=== PATIENT | female | born 1960 | race Caucasian/White ===

== ENCOUNTER 2019-03-08 17:55 | Inpatient (IN) ==
[2019-03-08] MEDS ORDERED: PROTONIX 80 MG in NS 80 ML IV ONE (18:29)
[2019-03-08] MEDS ORDERED: PROTONIX 80 MG in NS 80 ML IV SCH ×2 (18:30→23:00)
[2019-03-08] MEDS ORDERED: LR 1,000 ML IV ONE (18:30)
[2019-03-08 18:39] LABS: OCCULT BLOOD 1 NEGATIVE (NEGATIVE)
[2019-03-08 19:08] LABS: BASO# 0.04 X1000 (0.0-0.2); BASO% 0.6 % (0.0-0.8); EOS# 0.07 X1000 (0.0-0.7); EOS% 1.1 % (0.0-10.0); HEMATOCRIT 31.5 % (37.0-47.0); HEMOGLOBIN 10.6 g/dL (12.0-16.0); IMM GRAN# 0.06 X1000 (0.0-0.04); LYMPH# 1.96 X1000 (1.2-3.4); LYMPH% 31.6 % (20.5-51.1); MCHC 33.7 g/dL (33-37); MCV 86.1 FL (81-99); MONO# 0.39 X1000 (0.11-0.59); MONO% 6.3 % (1.7-9.3); MPV 9.6 FL (7.4-10.4); NEUT# 3.68 X1000 (1.4-6.5); NEUT% 59.4 % (42.2-75.2); PLT 234 X1000 (130-400); RBC 3.66 XMIL (4.2-5.4); RDW 13.9 % (11.5-14.5)
[2019-03-08 19:15] LABS: ALBUMIN 4.5 g/dL (3.5-5.0); CALCIUM 10.4 mg/dL (8.8-10.2); CREATININE 1.1 mg/dL (0.5-0.9); POTASSIUM 3.6 mmol/L (3.5-5.1); TOTAL BILIRUBIN 0.3 mg/dL (0.20-1.00); TOTAL PROTEIN 7.2 g/dL (6.3-8.3)
[2019-03-08] MEDS ORDERED: HUMULIN R (PARKWAY) IV ONE (19:17)
[2019-03-08 19:24] LABS: INR 0.9; PROTIME 12.6 Seconds (11.0-16.0)
[2019-03-08] MEDS ORDERED: PROTONIX ONE (19:35)
[2019-03-08 19:37] LABS: CK PROFILE 35 U/L (24-173); MAGNESIUM 1.1 mg/dL (1.5-2.7); PHOSPHORUS 4.5 mg/dL (2.7-4.5)
[2019-03-08 19:39] LABS: URINE SOURCE CATH
[2019-03-08 19:51] LABS: BLOOD TYPE ARTERIAL; HCO3-(ACT) 25.5 mmoll (20.0-26.0); O2(CT) 12.2 mL/dL (15.0-23.0); PCO2(98.6) 42 mmHg (35-45); PO2(98.6) 63 mmHg (60-100); SAMPLE BLOOD; SAO2 93.9 % (95.0-100.0)
[2019-03-08 19:54] LABS: ALLEN TEST NO; MODALITY ROOM AIR
[2019-03-08 19:57] LABS: BILIRUBIN URINE NEGATIVE (NEGATIVE); BLOOD URINE NEGATIVE (NEGATIVE); CLARITY CLEAR (CLEAR); COLOR YELLOW; KETONE URINE NEGATIVE (NEGATIVE); LEUKOCYTES URINE NEGATIVE (NEGATIVE); NITRITE URINE NEGATIVE (NEGATIVE); PROTEIN URINE NEGATIVE (NEGATIVE); UROBILINOGEN URINE NORMAL
[2019-03-08 19:58] LABS: UR AMPHETAMINES QUAL NONE DETECTED (NONE DETECT); UR BARBITUATES QUAL PRESUMPTIVE POSITIVE (NONE DETECT); UR BENZODIAZEPIN QUAL PRESUMPTIVE POSITIVE (NONE DETECT); UR CANNABINOIDS QUAL NONE DETECTED (NONE DETECT); UR COCAINE QUAL NONE DETECTED (NONE DETECT); UR METHADONE QUAL NONE DETECTED (NONE DETECT); UR METHAMPHETAMINE QUAL NONE DETECTED (NONE DETECT); UR OPIATES QUAL NONE DETECTED (NONE DETECT); UR OXYCODONE QUAL NONE DETECTED (NONE DETECT); UR PCP QUAL NONE DETECTED (NONE DETECT); UR PROPOXYPHENE QUAL NONE DETECTED (NONE DETECT); UR TCA QUAL PRESUMPTIVE POSITIVE (NONE DETECT)
[2019-03-08 19:59] LABS: ACETONE SERUM NEGATIVE (NEGATIVE)
[2019-03-08] MEDS ORDERED: LACTATED RINGERS IV ONE (20:03)
[2019-03-08] MEDS ORDERED: LEVAQUIN 750 MG in NS 150 ML IV ONE (20:04)
[2019-03-08] MEDS ORDERED: ZOSYN 3.375 GM in NS 50 ML IV ONE (20:04)
[2019-03-08] MEDS ORDERED: MORPHINE IV PRN ×2 (20:05→22:38)
[2019-03-08] MEDS ORDERED: ZOFRAN IV PRN ×2 (20:05→22:38)
[2019-03-08] MEDS ORDERED: ATIVAN IV PRN (20:16)
[2019-03-08] MEDS ORDERED: HUMULIN R (PARKWAY) SUBQ SCH (21:00)
[2019-03-08] MEDS ORDERED: MAGNESIUM SULFATE 2 GM/S.W.I. 2 GM/50 ML IVPB IV ONE (22:44)
[2019-03-08] MEDS: PROTONIX 80 MG in NS 80 ML IV SCH (22:51)
[2019-03-08] MEDS: MORPHINE IV PRN (23:03)
[2019-03-08] MEDS: NS 1,000 ML IV SCH (23:05)
[2019-03-08] MEDS ORDERED: SODIUM CHLORIDE 0.9% INJ PRN (23:21)
[2019-03-08 23:27] LABS: HEMOGLOBIN 10.9 g/dL (12.0-16.0)
[2019-03-09] MEDS: DUONEB (A & A) INH SCH ×4 (03:46→21:11)
[2019-03-09] MEDS: MORPHINE IV PRN ×4 (05:44→18:39)
[2019-03-09] MEDS: HUMULIN R SUBQ SCH ×10 (05:45→22:56)
[2019-03-09] MEDS: NICODERM PATCH TD SCH ×2 (05:52→08:55)
[2019-03-09 06:29] LABS: URINE SOURCE CATH
[2019-03-09 06:30] LABS: BILIRUBIN URINE NEGATIVE (NEGATIVE); BLOOD URINE SMALL (NEGATIVE); COLOR YELLOW; GLUCOSE URINE 100 mg/dL (NEGATIVE); KETONE URINE NEGATIVE (NEGATIVE); LEUKOCYTES URINE NEGATIVE (NEGATIVE); NITRITE URINE NEGATIVE (NEGATIVE); PROTEIN URINE TRACE mg/dL (NEGATIVE); SP GRAVITY URINE 1.016; TURBIDITY URINE CLEAR (CLEAR); UROBILINOGEN URINE NORMAL (NORMAL)
[2019-03-09 06:34] LABS: UR EPITHELIAL CELLS <10 /HPF (<10); URINE BACTERIA NEGATIVE /HPF; URINE RBC <10 /HPF (<10); URINE WBC <10 /HPF (<10)
[2019-03-09] MEDS: ATIVAN IV PRN ×3 (07:34→19:49)
[2019-03-09] MEDS: PROTONIX 80 MG in NS 80 ML IV SCH (08:57)
[2019-03-09] MEDS: NS 1,000 ML IV SCH ×2 (08:57→18:18)
[2019-03-09 09:16] LABS: BASO# 0.02 X1000 (0.0-0.2); BASO% 0.4 % (0.0-0.8); EOS# 0.13 X1000 (0.0-0.7); EOS% 2.6 % (0.0-10.0); HEMATOCRIT 30.4 % (37.0-47.0); HEMOGLOBIN 9.7 g/dL (12.0-16.0); IMM GRAN# 0.04 X1000 (0.0-0.04); IMM GRAN% 0.8 % (0.0-0.5); LYMPH# 1.63 X1000 (1.2-3.4); LYMPH% 32.9 % (20.5-51.1); MCH 28.2 PG (27-31); MCHC 31.9 g/dL (33-37); MCV 88.4 FL (81-99); MONO# 0.34 X1000 (0.11-0.59); MONO% 6.9 % (1.7-9.3); MPV 9.3 FL (7.4-10.4); NEUT# 2.79 X1000 (1.4-6.5); NEUT% 56.4 % (42.2-75.2); PLT 206 X1000 (130-400); RBC 3.44 XMIL (4.2-5.4); RDW 14.1 % (11.5-14.5); WBC 4.95 X1000 (4.8-10.8)
[2019-03-09 09:22] LABS: HEMOGLOBIN A1C 10.8 % (4.8-6.0)
[2019-03-09 09:34] LABS: AGAP 11; BUN 10 mg/dL (8-22); CALCIUM 8.8 mg/dL (8.8-10.2); CHLORIDE 103 mmol/L (98-107); CHOLESTEROL 111 mg/dL (0-200); COSMO 286; CREATININE 0.8 mg/dL (0.5-0.9); ESTIMATED GFR > 60; GLUCOSE 201 mg/dL (70-104); HDL 24 mg/dL (45-65); LDL 30 mg/dL; MAGNESIUM 1.5 mg/dL (1.5-2.7); POTASSIUM 2.9 mmol/L (3.5-5.1); SODIUM 141 mmol/L (136-145); TCO2 27 mmol/L (25-35); TRIGLYCERIDES 286 mg/dL (35-135); VLDL 57 mg/dL
[2019-03-09 11:27] LABS: HEMATOCRIT 35.1 % (37.0-47.0); HEMOGLOBIN 11.7 g/dL (12.0-16.0)
[2019-03-09] MEDS: PHENERGAN IV PRN (11:42)
[2019-03-09] MEDS ORDERED: KLOR-CON PO ONE (13:07)
[2019-03-10] MEDS: MORPHINE IV PRN ×5 (01:58→18:49)
[2019-03-10] MEDS: DUONEB (A & A) INH SCH ×3 (03:30→15:53)
[2019-03-10] MEDS: ATIVAN IV PRN ×3 (05:05→10:04)
[2019-03-10] MEDS: NS 1,000 ML IV SCH (06:16)
[2019-03-10] MEDS: HUMULIN R SUBQ SCH ×6 (06:19→15:39)
[2019-03-10] MEDS: NICODERM PATCH TD SCH (08:01)
[2019-03-10 08:25] LABS: HEMATOCRIT 31.7 % (37.0-47.0); HEMOGLOBIN 10.3 g/dL (12.0-16.0); MCH 28.9 PG (27-31); MCHC 32.5 g/dL (33-37); MPV 9.3 FL (7.4-10.4); RBC 3.56 XMIL (4.2-5.4); WBC 4.6 X1000 (4.8-10.8)
[2019-03-10 08:29] LABS: INR 0.99; PROTIME 13.1 Seconds (11.0-16.0)
[2019-03-10 09:04] LABS: AGAP 10; ALB/GLOB RATIO 1.7; ALBUMIN 3.7 g/dL (3.5-5.0); ALKALINE PHOSPHATASE 54 U/L (32-104); BUN 9 mg/dL (8-22); CALCIUM 8.4 mg/dL (8.8-10.2); CHLORIDE 105 mmol/L (98-107); COSMO 286; CREATININE 0.7 mg/dL (0.5-0.9); ESTIMATED GFR > 60; GLUCOSE 179 mg/dL (70-104); GOT 20 U/L (10-30); GPT 12 U/L (10-36); POTASSIUM 3.6 mmol/L (3.5-5.1); SODIUM 142 mmol/L (136-145); TCO2 27 mmol/L (25-35); TOTAL BILIRUBIN 0.26 mg/dL (0.20-1.00); TOTAL PROTEIN 5.9 g/dL (6.3-8.3)
[2019-03-10] MEDS ORDERED: ATIVAN IV PRN (11:20)
[2019-03-10] MEDS ORDERED: NS 250 ML ONE (11:30)
[2019-03-10] MEDS ORDERED: VERSED ONE (12:50)
[2019-03-10] MEDS ORDERED: XYLOCAINE-MPF 2% ONE (12:52)
[2019-03-10] MEDS ORDERED: ROBINUL ONE (12:52)
[2019-03-10] MEDS ORDERED: DIPRIVAN 1% ONE (12:52)
[2019-03-10 13:06] LABS: HEPATITIS PROFILE ACUTE SEE COMMENTS
[2019-03-10] MEDS: PHENERGAN IV PRN ×2 (13:50→18:50)
[2019-03-10] MEDS: NEURONTIN PO SCH (17:27)
[2019-03-10 20:13] VITALS: BP 122/69
[2019-03-10] MEDS ORDERED: DESYREL PO SCH (21:00)
[2019-03-10] MEDS ORDERED: GEODON PO SCH (21:00)
[2019-03-10] MEDS ORDERED: SEROQUEL PO SCH (21:00)
[2019-03-10] MEDS ORDERED: REMERON PO SCH (21:00)
[2019-03-11 13:32] LABS: HCV BY PCR SEE COMMENTS
== END 2019-03-10 21:00 | disposition left against medical advice (07) ==
LOC: P.ED 17:55 → SUATTDRO 20:52 → ICU 20:52 → 3N 03-10 16:11
PROVIDERS: ATTEND Internal Medicine

== ENCOUNTER 2019-03-12 13:35 | Inpatient (IN) ==
[2019-03-12] MEDS ORDERED: HUMULIN R IV ONE (14:06)
[2019-03-12] MEDS ORDERED: GEODON IM ONE (14:20)
[2019-03-12] MEDS ORDERED: STERILE WATER INJ. INJ ONE (14:20)
[2019-03-12 14:27] LABS: BASO# 0.04 X1000 (0.0-0.2); BASO% 0.7 % (0.0-0.8); EOS# 0.15 X1000 (0.0-0.7); EOS% 2.5 % (0.0-10.0); HEMATOCRIT 34.6 % (37.0-47.0); HEMOGLOBIN 11.3 g/dL (12.0-16.0); IMM GRAN# 0.02 X1000 (0.0-0.04); IMM GRAN% 0.3 % (0.0-0.5); LYMPH# 1.36 X1000 (1.2-3.4); LYMPH% 22.3 % (20.5-51.1); MCH 28.2 PG (27-31); MCHC 32.7 g/dL (33-37); MCV 86.3 FL (81-99); MONO# 0.26 X1000 (0.11-0.59); MONO% 4.3 % (1.7-9.3); MPV 9.4 FL (7.4-10.4); NEUT# 4.28 X1000 (1.4-6.5); NEUT% 69.9 % (42.2-75.2); PLT 211 X1000 (130-400); RBC 4.01 XMIL (4.2-5.4); RDW 13.7 % (11.5-14.5); WBC 6.11 X1000 (4.8-10.8)
--- NOTE | 2019-03-12 14:41 | EKG Report ---
Test Performed on : 03/12/2019 2:20:50 PM Test Reason : sob Blood Pressure : / mmHG Vent. Rate : 083 BPM Atrial Rate : 083 BPM P-R Int : 150 ms QRS Dur : 096 ms QT Int : 394 ms P-R-T Axes : 057 -13 020 degrees QTc Int : 462 ms Normal sinus rhythm. Possible Left atrial enlargement RSR' or QR pattern in V1 suggests right ventricular conduction delay Nonspecific T wave abnormality Prolonged QT Abnormal ECG When compared with ECG of 08-MAR-2019 21:16, RSR' pattern in V1 has replaced Right bundle branch block T wave inversion more evident in Anterior leads Unconfirmed Result
[2019-03-12] MEDS ORDERED: HUMULIN R (PARKWAY) ONE (14:43)
--- NOTE | 2019-03-12 14:45 | Diag Imaging Result Doc PS360 ---
EXAM: CHEST-2 VIEWS HISTORY: short of breath TECHNIQUE: Two views COMPARISON: 03/09/2019 FINDINGS: The lungs are well expanded. The heart is not enlarged. There are sternal wires. The vessels are less distended. There are no infiltrates. No pleural effusions. IMPRESSION: Interval improvement Electronically signed by Dmitri Palma 03/12/2019 2:43 PM
[2019-03-12 14:55] LABS: ESTIMATED GFR > 60
[2019-03-12 15:05] LABS: AGAP 13; ALBUMIN 4.8 g/dL (3.5-5.0); ALKALINE PHOSPHATASE 74 U/L (32-104); BUN 9 mg/dL (8-22); CHLORIDE 97 mmol/L (98-107); COSMO 291; CREATININE 0.9 mg/dL (0.5-0.9); GOT 12 U/L (10-30); GPT 11 U/L (10-36); POTASSIUM 3.8 mmol/L (3.5-5.1); SODIUM 135 mmol/L (136-145); TCO2 25 mmol/L (25-35); TOTAL PROTEIN 7.6 g/dL (6.3-8.3)
[2019-03-12 15:07] LABS: GLUCOSE 494 mg/dL (70-104)
[2019-03-12 15:11] LABS: BILIRUBIN URINE NEGATIVE (NEGATIVE); BLOOD URINE NEGATIVE (NEGATIVE); CLARITY CLEAR (CLEAR); COLOR YELLOW; KETONE URINE NEGATIVE (NEGATIVE); LEUKOCYTES URINE NEGATIVE (NEGATIVE); NITRITE URINE NEGATIVE (NEGATIVE); PH URINE 6.5; PROTEIN URINE NEGATIVE (NEGATIVE); UROBILINOGEN URINE NORMAL
[2019-03-12 15:12] LABS: INFLUENZA A NEGATIVE (NEGATIVE); INFLUENZA B NEGATIVE (NEGATIVE)
[2019-03-12 15:13] LABS: URINE BACTERIA 1+ /HFP; URINE EPITHELIAL CELLS >10 /HPF (<10)
[2019-03-12 15:14] LABS: URINE CAST NONE SEEN /LPF; URINE CRYSTAL NONE SEEN /HPF; URINE SOURCE CLEAN CATCH; URINE YEAST NONE SEEN /HPF
[2019-03-12 15:58] LABS: BE 2.8 mmoll (-3.0-3.0); BLOOD TYPE ARTERIAL; METHB 0.8 % (0.0-1.5); O2(CT) 14.8 mL/dL (15.0-23.0); O2HB 90.2 % (95.0-99.0); PCO2(98.6) 32 mmHg (35-45); PO2(98.6) 81 mmHg (60-100); SAMPLE BLOOD; SAO2 97.5 % (95.0-100.0); THB 11.6 g/dL (11.5-17.4); pH(98.6) 7.51 (7.35-7.45)
[2019-03-12 16:02] LABS: ALLEN TEST NO; MODALITY ROOM AIR
[2019-03-12] MEDS ORDERED: MAGNESIUM SULFATE 2 GM/S.W.I. 2 GM/50 ML IVPB IV ONE (16:12)
[2019-03-12] MEDS ORDERED: LASIX PO PRN (16:24)
[2019-03-12] MEDS ORDERED: NICODERM PATCH TD ONE ×2 (16:31→16:33)
--- NOTE | 2019-03-12 16:34 | PROVIDER DOCUMENTATION ---
This chart was entered by Doron Rankin Scribe, acting as scribe for Bhupinder Fitch MD. HPI-General Adult - General Chief Complaint: High Blood Sugar Stated Complaint: HYPERGLYCEMIA 517 Time Seen by Provider: 03/12/19 13:51 Source: patient, EMS Allergies/Adverse Reactions: Patient Allergies Allergy/AdvReac Type Severity Reaction Status Date / Time aspirin Allergy Unknown Verified 03/12/19 15:12 ketorolac [From Toradol] Allergy Unknown Verified 03/12/19 15:12 nitroglycerin Allergy Unknown Verified 03/12/19 15:12 ondansetron [From Zofran] Allergy Unknown Verified 03/12/19 15:12 tramadol [From Ultram] Allergy Unknown Verified 03/12/19 15:12 Home Medications: Home Medication List Medication Instructions Recorded Confirmed Last Taken Type Albuterol Sulfate [Proair Hfa] 2 - 4 puff INHALATION Q4-6H PRN PRN 03/08/19 03/12/19 Unknown History Brompheniramine/Pseudoephed/Dm 5 - 10 ml PO Q4H PRN 03/08/19 03/12/19 Unknown History [Bromfed Dm Cough Syrup] Furosemide [Lasix] 20 mg PO DAILY PRN 03/08/19 03/12/19 Unknown History Ibuprofen 800 mg PO Q8H PRN PRN 03/08/19 03/12/19 Unknown History Mirtazapine 15 mg PO QHS 03/08/19 03/12/19 Unknown History Potassium Chloride 8 meq PO DAILY 03/08/19 03/12/19 Unknown History Quetiapine [Seroquel] 100 mg PO DAILY 03/08/19 03/12/19 Unknown History Trazodone [Desyrel] 100 mg PO QHS 03/08/19 03/12/19 Unknown History Ziprasidone [Geodon] 80 mg PO DAILY 03/08/19 03/12/19 Unknown History ATORVAstatin [Lipitor] 40 mg PO HS 03/12/19 03/12/19 Unknown History Fenofibrate [Tricor] 1 tab PO DAILY 03/12/19 03/12/19 Unknown History Folic Acid 1 tab PO DAILY 03/12/19 03/12/19 Unknown History Levetiracetam [Keppra] 1,000 mg PO BID 03/12/19 03/12/19 Unknown History Levothyroxine [Synthroid] 1 tab PO DAILY 03/12/19 03/12/19 Unknown History Quetiapine [Seroquel] 2 tab PO HS 03/12/19 03/12/19 Unknown History Sennosides/Docusate Sodium 1 tab PO HS 03/12/19 03/12/19 Unknown History [Senna-S Tablet] Sertraline HCl [Zoloft] 1 tab PO DAILY 03/12/19 03/12/19 Unknown History - History of Present Illness -Gen Adult Nature of Presenting Problems: 58 yof presents to the ed v/a ems with c/o High Blood Sugar. pt stated leaving [facility] yesterday AMA because "They wasnt given me my medications , i felt bad i could feel i needed them." pt stated " i was here in [facility] 2 days ago and was admitted to from here with fluid on my lungs, GI bleed and Pneumonia." pt stated " I went back to [facility] where i was for 2 weeks and paid money up front , then kept my and they wont take me anymore because I have to many health problems." pt stated " today i went to my pcp and they were suppose to call over here." pt stated " i couldn't sleep last night." pt had hx of schizo , bipolar,and Hep C Location of Pain/Injury: reports: none Pain Radiation: reports: no radiation Quality of Pain: reports: none Severity: reports: mild Onset/Duration: reports: other (left icu at yesterday) Timing: reports: still present Context/Activities at Onset: reports: none Modifying Factors: improves with: nothing Associated Symptoms: denies: arm pain, back/neck pain, chest pain, diarrhea, fever/chills, nausea, rash, vomiting Similar Symptoms Previously?: No Recently seen or treated by another doctor?: Yes (by pcp today , ICU yesterday ) - Diabetes Related Context Context: reports: high blood sugar (ems repoeted on arrival sugar was 481) Review of Systems - Adult - REVIEW OF SYSTEMS - ADULT Constitutional: denies: chills, fever Eyes: reports: no symptoms reported Ears, Nose, Mouth & Throat: reports: no symptoms reported Cardiovascular: denies: chest pain, syncope Respiratory: denies: shortness of breath, wheezing Gastrointestinal: denies: abdominal pain, diarrhea, nausea, vomiting Genitourinary: reports: no symptoms reported Musculoskeletal: denies: back pain, neck pain Integumentary: reports: no symptoms reported Neurological: reports: no symptoms reported Psychiatric: reports: no symptoms reported Endocrine: reports: no symptoms reported Hematologic/Lymphatic: reports: no symptoms reported Allergic/Immunologic: reports: no symptoms reported All Other Systems: Reviewed and Negative Past History - Adult - PAST MEDICAL HISTORY-ADULT Review of Records: reports: Nursing Assessment Review, Medications Reviewed, Social history reviewed & non-contributory. Major Childhood Illnesses: reports: denies history Cardiovascular: reports: cardiac disease, CAD, CHF, hyperlipidemia, [place] Respiratory: reports: denies history Gastrointestinal: reports: denies history Obstetrical/Gynecological: reports: denies history Genitourinary: reports: denies history Musculoskeletal: reports: arthritis Neurological: reports: denies history Psychiatric: reports: anxiety, bipolar, schizophrenia Endocrine/Immune: reports: thyroid disorder Other Conditions: reports: denies history - PRIOR SURGERIES/PROCEDURES Surgical/Procedure History: reports: CABG, cholecystectomy - IMMUNIZATION STATUS Childhood Immunizations: UTD Flu Vaccine: NUTD - FAMILY HISTORY Family History: reviewed, not pertinent Physical Exam-General - PHYSICAL EXAM-ADULT Initial Vital Signs Reviewed: Yes - CONSTITUTIONAL General Appearance: appears well, alert, no apparent distress, other (tearful on exam). negative: lethargic, slow to respond - EYES Eyes: PERRL/EOMI - HEAD, EARS, NOSE, MOUTH & THROAT HENMT: moist mucous membranes - NECK Neck: full range of motion - RESPIRATORY Respiratory: chest non-tender, lungs clear, normal breath sounds, no pleuratic chest pain, no respiratory distress, no accessory muscle use - CARDIOVASCULAR Cardiovascular: normal peripheral pulses (97), regular rate, rhythm, no edema, no gallop, no JVD, no murmur - CHEST (BREASTS) Chest/Breast: deferred - GASTROINTESTINAL (ABDOMEN) Abdominal Exam: normal bowel sounds, non tender, soft, no organomegaly, no pulsatile mass - GENITOURINARY Female Genitalia/Pelvic Exam: deferred Rectal Exam: deferred Hemoccult Exam: deferred - LYMPHATIC Lymphatic: no adenopathy - MUSCULOSKELETAL Back Exam: normal inspection, no CVA tenderness, no vertebral tenderness Extremity: normal range of motion, non-tender, normal gait, normal inspection - SKIN Integumentary: normal color, normal turgor, warm/dry - NEUROLOGIC Neurologic: grossly normal, no motor/sensory deficits - PSYCHIATRIC Psych/Mental Status: normal mood/affect, normal thought content, normal thought process, oriented x 3 Progress - PLAN OF CARE/RESULTS Progress/Plan/Lab Results: Vital Signs - 8 hr 03/12/19 13:27 Temperature 97 F L Pulse Rate 94 H Respiratory Rate 18 Blood Pressure 131/97 O2 Sat by Pulse Oximetry 96 Result Diagrams: 03/12/19 14:00 03/12/19 14:00 - EKG 1 Time of EKG reading by physician:: 14:20 EKG Read and Signed by:: Bhupinder Fitch EKG Interpretation (*Must complete 3 of following elements*): Abnormal Rate: 83 Rhythm: NSR Walland: normal ID Interval: normal (proglonged QT) ST Wave: normal (RSR or QR pattern in V1 suggests right ventricular conduction delay) Comments: possible left atrial enlargement /nonspecific T wave abnormality - XRAY 1 XRAY Study: Chest Impression: See EMR Report (EXAM: CHEST-2 VIEWS HISTORY: short of breath TECHNIQUE: Two views COMPARISON: 03/09/2019 FINDINGS: The lungs are well expanded. The heart is not enlarged. There are sternal wires. The vessels are less distended. There are no infiltrates. No pleural effusions. IMPRESSION: Interval improvement Electronically signed by Dmitri Palma 03/12/2019 2:43 PM 03/12/19 1443 Interpreting Physician: Dmitri Palma MD Dictated Date/Time: 03/12/19 1442 cc: Bhupinder Fitch MD;) - CONSULTS/PCP/HOSPITALIST Notification #1 *Consult/PCP/Hospitalist*: on phone with Time Discussed: 16:02 Consult Disposition: Admit Departure - Departure Date of Disposition Decision: 03/12/19 Time of Disposition Decision: 16:09 DIAGNOSIS: Hypomagnesemia, Lactic acidosis, Uncontrolled diabetes mellitus, Bipolar 1 disorder, depressed, moderate Disposition: ADMITTED INPATIENT 09 Certified Medical Emergency: Emergent Condition: Fair Referrals and Follow-Ups: None,PCP [Primary Care Provider] - - Critical Care Note This patient required my direct & personal management of CC.: No Attestation - Physician/ SHIVANI Attestation Patient care was provided by Advanced Practice Provider:: No The physician spent face to face time with patient:: Yes Advanced Practice Provider documentation review:: Supervising physician onsite and consulted in the evaluation and care of this patient. The physician did have a face to face encounter with the patient. This chart was documented by the indicated scribe, (Doron Rankin, Daniella) and accurately reflects the services I performed and decisions made by me, Bhupinder Fitch MD, as attested by the provider's signature.
[2019-03-12 16:56] LABS: HEMOGLOBIN A1C 10.4 % (4.8-6.0)
[2019-03-12] MEDS ORDERED: ZOFRAN IV PRN (17:21)
[2019-03-12] MEDS: LOVENOX SUBQ SCH (17:51)
[2019-03-12] MEDS: ZOSYN 3.375 GM in NS 50 ML IV SCH ×2 (17:51→23:25)
[2019-03-12] MEDS: NS 1,000 ML IV SCH (17:51)
[2019-03-12] MEDS: PRILOSEC PO SCH (17:51)
[2019-03-12] MEDS: TYLENOL PO PRN (17:55)
[2019-03-12] MEDS: DUONEB (A & A) INH SCH ×2 (19:31→23:25)
[2019-03-12] MEDS: MUCOMYST 20% INH SCH (19:32)
--- NOTE | 2019-03-12 20:13 | HISTORY AND PHYSICAL ---
CHIEF COMPLAINT: Shortness of breath. HISTORY OF PRESENT ILLNESS: This is a 58-year-old female who was recently admitted to [facility] for GI bleeding and flu-like symptoms that appears to be pneumonia. Unfortunately, the patient left the hospital AMA. According to her she said that she was not allowed to take her home medication for bipolar disorder and schizoaffective disorder. According to the notes from that visit, she was not allowed to walk in the hallways, and she got upset and left the hospital AMA. In any case, since she left the hospital, she continued to have difficulty in breathing, more cough with greenish sputum, and that has been going on for almost a week. She was given azithromycin prior to her last visit to the hospital. She is not having any blood in the stools or maroon-colored stools. She was scoped for possible GI bleeding last hospitalization a few days ago. In the ER, workup revealed normal white cell count with a little bit decreased CO2 in the ABG, elevated blood sugars of 494 and slightly elevated lactate so we were called for admission. PAST MEDICAL HISTORY: 1. Bipolar with schizoaffective disorder. 2. Chronic obstructive pulmonary disease not on any oxygen. 3. Diabetes mellitus type 2. 4. Anxiety disorder. 5. Depressive disorder with suicidal attempt 6 years ago. 6. Congestive heart failure. 7. Coronary artery disease. 8. History of pancreatitis. 9. Hepatitis C from blood transfusion 20 years ago. PAST SURGICAL HISTORY: 1. CABG x3 at [facility] in [place]. 2. Cholecystectomy. 3. Hysterectomy. 4. Left arm surgery. 5. Right arm surgery. 6. Tumor removal from the right buttocks. FAMILY HISTORY: Mother from COPD. Father from alcohol abuse. Patient has a brother who has COPD as well and also had a heart attack. SOCIAL HISTORY: Patient recently moved from [place], [place]. She reports that she does drink alcohol being wine every order day, but she completely complete 1 week ago. She smokes 1 pack per day for the last 48 years. She started smoking at 10, and she lives by herself. She denies using any illicit drugs. ALLERGIES: Patient is allergic to aspirin, Toradol, nitroglycerine, Compazine and Zofran. REVIEW OF SYSTEMS: Eleven systems were reviewed, and all symptoms are related in H and P. PHYSICAL EXAMINATION: VITAL SIGNS: Temperature 97.0 degrees, heart rate 92, respiratory rate 20, blood pressure 132/72, O2 saturation 96% on room air. GENERAL EXAMINATION: This is a chronically ill-appearing and looking older than her stated age, 58-year-old female lying in bed in no acute distress. HEENT: Head is normocephalic and atraumatic. Pupils equal, round, reactive to light and accommodation. Anicteric sclerae and pale conjunctivae. NECK: No JVD noted. No carotid bruits. No lymphadenopathy. No thyromegaly. CARDIOVASCULAR EXAM: S1, S2 heard. No murmurs, gallops, or rubs. Regular rate and rhythm. RESPIRATORY: Decreased breath sounds globally with minimal coarse breath sounds in both pulmonary bases. Patient not using any accessory muscles or having work of breathing. ABDOMEN: Soft, nontender to palpation. Bowel sounds present. No organomegaly. EXTREMITIES: No clubbing, cyanosis, or edema. Peripheral pulses present in both legs. NEUROLOGICAL EXAM: The patient is alert and oriented x3. Moves all 4 extremities. LABORATORY DATA: CBC indicates white cell count of 6.11 with hemoglobin of 11.3, hematocrit 34.6, platelets 211,000. ABG shows pH of 7.51 with pCO2 32, pO2 81. BMP shows glucose of 494. Troponins are normal. Plasma lactate 2.3. IMAGING: Chest x-ray from today showed interval improvement. There is no infiltrate, no perforation. ASSESSMENT AND PLAN: 1. Acute bronchitis. For that condition, we are going to start this patient on Zosyn 3.375 g IV q.6 hours. We will provide also breathing treatments, and I do not think we need to use steroids because patient is not in any chronic obstructive pulmonary disease exacerbation. We will also provide Mucomyst as well. We will keep checking CBC daily. We will check also lactate tomorrow that is slightly elevated today. 2. Uncontrolled diabetes mellitus type 2. Glucose is over 400 so we will restart Levemir and start sliding scale insulin with Humalog. We will check hemoglobin A1c. 3. Deep vein thrombosis prophylaxis with Lovenox. 4. Gastrointestinal prophylaxis with omeprazole. cc: MD NARA Tanner
[2019-03-12] MEDS: PERICOLACE PO SCH (21:51)
[2019-03-12] MEDS: LIPITOR PO SCH (21:51)
[2019-03-12] MEDS: DESYREL PO SCH (21:51)
[2019-03-12] MEDS: REMERON PO SCH (21:51)
[2019-03-12] MEDS: LEVEMIR INSULIN *HA SUBQ SCH (21:52)
[2019-03-12] MEDS: KEPPRA PO SCH (21:52)
[2019-03-12] MEDS: HUMALOG (PARKWAY) SUBQ SCH (21:58)
[2019-03-12] MEDS: GEODON PO SCH (23:24)
[2019-03-13] MEDS: DUONEB (A & A) INH SCH ×6 (03:51→23:19)
[2019-03-13 04:15] LABS: BE 3.6 mmoll (-3.0-3.0); BLOOD TYPE ARTERIAL; HCO3-(ACT) 27.6 mmoll (20.0-26.0); METHB 0.8 % (0.0-1.5); O2(CT) 14.1 mL/dL (15.0-23.0); O2HB 90.7 % (95.0-99.0); PCO2(98.6) 39 mmHg (35-45); PO2(98.6) 63 mmHg (60-100); SAMPLE BLOOD; SAO2 94.6 % (95.0-100.0); pH(98.6) 7.46 (7.35-7.45)
[2019-03-13 04:19] LABS: ALLEN TEST YES; MODALITY ROOM AIR
[2019-03-13] MEDS: TYLENOL PO PRN ×3 (04:35→23:14)
[2019-03-13] MEDS: ZOSYN 3.375 GM in NS 50 ML IV SCH ×5 (04:36→21:53)
[2019-03-13] MEDS: SYNTHROID PO SCH (06:23)
[2019-03-13] MEDS: PRILOSEC PO SCH (06:23)
[2019-03-13] MEDS: HUMALOG (PARKWAY) SUBQ SCH ×4 (06:40→21:55)
[2019-03-13] MEDS: MUCOMYST 20% INH SCH ×2 (07:56→07:59)
[2019-03-13] MEDS: TRICOR PO SCH (08:53)
[2019-03-13] MEDS: NS 1,000 ML IV SCH (08:53)
[2019-03-13] MEDS: ZOLOFT PO SCH (08:54)
[2019-03-13] MEDS: KEPPRA PO SCH ×2 (08:54→21:54)
[2019-03-13] MEDS: FOLIC ACID PO SCH (08:54)
[2019-03-13] MEDS ORDERED: GEODON PO SCH (09:00)
[2019-03-13] MEDS ORDERED: LASIX PO SCH (09:00)
[2019-03-13] MEDS: SEROQUEL PO SCH (09:21)
[2019-03-13] MEDS: NEURONTIN PO SCH ×3 (09:21→21:54)
[2019-03-13 10:14] LABS: BASO# 0.03 X1000 (0.0-0.2); BASO% 0.6 % (0.0-0.8); EOS# 0.14 X1000 (0.0-0.7); EOS% 2.7 % (0.0-10.0); HEMATOCRIT 30.9 % (37.0-47.0); HEMOGLOBIN 10.2 g/dL (12.0-16.0); IMM GRAN# 0.02 X1000 (0.0-0.04); IMM GRAN% 0.4 % (0.0-0.5); LYMPH# 0.99 X1000 (1.2-3.4); LYMPH% 19.3 % (20.5-51.1); MCH 28.7 PG (27-31); MONO# 0.28 X1000 (0.11-0.59); MONO% 5.4 % (1.7-9.3); MPV 9.2 FL (7.4-10.4); NEUT# 3.68 X1000 (1.4-6.5); NEUT% 71.6 % (42.2-75.2); PLT 192 X1000 (130-400); RBC 3.55 XMIL (4.2-5.4); RDW 13.5 % (11.5-14.5); WBC 5.14 X1000 (4.8-10.8)
[2019-03-13 10:22] LABS: AGAP 12; BUN 11 mg/dL (8-22); CALCIUM 8.9 mg/dL (8.8-10.2); CHLORIDE 107 mmol/L (98-107); COSMO 287; CREATININE 0.8 mg/dL (0.5-0.9); ESTIMATED GFR > 60; GLUCOSE 281 mg/dL (70-104); POTASSIUM 3.7 mmol/L (3.5-5.1); SODIUM 139 mmol/L (136-145); TCO2 21 mmol/L (25-35)
[2019-03-13 10:37] LABS: CHOLESTEROL 131 mg/dL (0-200); HDL 30 mg/dL (45-65); LDL 32 mg/dL; TRIGLYCERIDES 346 mg/dL (35-135); VLDL 69 mg/dL
[2019-03-13] MEDS: NICODERM PATCH TD SCH (12:40)
--- NOTE | 2019-03-13 13:16 | PROGRESS NOTE ---
DATE: 03/13/2019 SUBJECTIVE: The patient reports feeling better. She was coughing a little bit more and she thinks that this breathing treatments are helping her to move that phlegm out. OBJECTIVE: Vital Signs: Temperature 97.9 degrees, heart rate 61 respiratory 16, blood pressure 148/60, O2 saturation 94% 2 L nasal cannula. General: This is a 58-year-old female lying in bed, in no acute distress. Cardiovascular: S1, S2 heard. No murmurs, gallops, or rubs. Regular rate and rhythm. Respiratory: Clear bilaterally to auscultation. No work of breathing or using accessory muscles. Abdomen: Soft, nontender to palpation. Bowel sounds present. No organomegaly. Extremities: No clubbing, cyanosis, or edema. Peripheral pulses present in both legs. Neurological: Patient alert oriented x3. Moves 4 extremities. LABORATORY DATA: Still pending. ASSESSMENT AND PLAN: 1. Acute bronchitis. The patient continues to be on Zosyn. Clinically patient is doing much better. White cell count is back to normal. Lactate is back to normal. We will continue with the same management. 2. Uncontrolled diabetes mellitus type 2. HgbA1c is 16.4. We have encouraged the patient to have better blood sugar control. At this point, we will continue Levemir and sliding scale insulin. 3. Deep vein thrombosis prophylaxis with Lovenox. 4. Gastrointestinal prophylaxis with omeprazole. DISPOSITION: We will continue to monitor this patient closely. If she continues to feels better we will discharge her tomorrow or the day after. cc: Jacques Muhammad MD
[2019-03-13] MEDS: LOVENOX SUBQ SCH (17:28)
[2019-03-13] MEDS ORDERED: SEROQUEL PO SCH (21:00)
[2019-03-13] MEDS: GEODON PO SCH (21:53)
[2019-03-13] MEDS: LIPITOR PO SCH (21:54)
[2019-03-13] MEDS: PERICOLACE PO SCH (21:54)
[2019-03-13] MEDS: LEVEMIR INSULIN *HA SUBQ SCH (21:54)
[2019-03-13] MEDS: DESYREL PO SCH (21:54)
[2019-03-13] MEDS: REMERON PO SCH (21:54)
[2019-03-14] MEDS: DUONEB (A & A) INH SCH ×3 (03:00→13:29)
[2019-03-14] MEDS: ZOSYN 3.375 GM in NS 50 ML IV SCH (04:04)
[2019-03-14] MEDS: NS 1,000 ML IV SCH (06:12)
[2019-03-14] MEDS: PRILOSEC PO SCH (06:13)
[2019-03-14] MEDS: SYNTHROID PO SCH (06:13)
[2019-03-14] MEDS: HUMALOG (PARKWAY) SUBQ SCH (06:57)
[2019-03-14 07:19] LABS: BASO# 0.04 X1000 (0.0-0.2); BASO% 1.1 % (0.0-0.8); EOS# 0.12 X1000 (0.0-0.7); EOS% 3.2 % (0.0-10.0); HEMATOCRIT 29.6 % (37.0-47.0); HEMOGLOBIN 9.7 g/dL (12.0-16.0); IMM GRAN# 0.02 X1000 (0.0-0.04); IMM GRAN% 0.5 % (0.0-0.5); LYMPH# 1.27 X1000 (1.2-3.4); LYMPH% 33.5 % (20.5-51.1); MCH 28.8 PG (27-31); MCHC 32.8 g/dL (33-37); MCV 87.8 FL (81-99); MONO% 5.3 % (1.7-9.3); NEUT# 2.14 X1000 (1.4-6.5); NEUT% 56.4 % (42.2-75.2); PLT 185 X1000 (130-400); RBC 3.37 XMIL (4.2-5.4); RDW 13.8 % (11.5-14.5); WBC 3.79 X1000 (4.8-10.8)
[2019-03-14] MEDS ORDERED: VANCOMYCIN IV PER PHARMACY MISC SCH (07:45)
[2019-03-14 07:48] LABS: AGAP 11; BUN 13 mg/dL (8-22); CALCIUM 9.1 mg/dL (8.8-10.2); CHLORIDE 109 mmol/L (98-107); COSMO 298; CREATININE 0.9 mg/dL (0.5-0.9); ESTIMATED GFR > 60; GLUCOSE 367 mg/dL (70-104); POTASSIUM 3.6 mmol/L (3.5-5.1); SODIUM 142 mmol/L (136-145); TCO2 23 mmol/L (25-35)
[2019-03-14] MEDS ORDERED: VANCOMYCIN 2,000 MG in NS 500 ML IV ONE (08:00)
[2019-03-14 08:10] VITALS: BP 166/70
[2019-03-14] MEDS: KEPPRA PO SCH (08:21)
[2019-03-14] MEDS: NEURONTIN PO SCH (08:21)
[2019-03-14] MEDS: ZOLOFT PO SCH (08:21)
[2019-03-14] MEDS: FOLIC ACID PO SCH (08:21)
[2019-03-14] MEDS: NICODERM PATCH TD SCH (08:21)
[2019-03-14] MEDS: SEROQUEL PO SCH (08:22)
[2019-03-14] MEDS: TRICOR PO SCH (08:22)
[2019-03-15] MEDS ORDERED: VANCOMYCIN 1,500 MG in NS 250 ML IV SCH (02:00)
--- NOTE | 2019-03-15 04:54 | DISCHARGE SUMMARY ---
ADMISSION DATE: 03/12/2019 DISCHARGE DATE: 03/14/2019 ADMISSION DIAGNOSES: 1. Acute bronchitis. 2. Uncontrolled diabetes mellitus type 2. DISCHARGE DIAGNOSES: 1. Acute bronchitis. 2. Uncontrolled diabetes mellitus type 2. CONSULTATIONS: None. SURGERIES AND PROCEDURES: None. HOSPITAL COURSE: On 03/12/2019, Ms. Cathi Weston, a 58-year-old female recently admitted to [facility] for GI bleed and flu-like symptoms, appears to be pneumonia. Unfortunately, the patient left the hospital AMA and according to her she said that she was not allowed to take her home medication for bipolar disorder and schizoaffective disorder. She continued having difficulty breathing, coughing up greenish sputum for at least a week. Was given azithromycin prior to her last visit in the hospital. Not having any blood in the stools or maroon-colored stools. She was scoped for possible GI bleeding a few days ago. ER workup revealed a normal white blood cell count, a little bit of decreased CO2 on the ABGs. Sugars were elevated at 494 with elevated lactate and we were called for admission. She was started on Zosyn, breathing treatments, Mucomyst, Levemir was started for the elevated sugars/blood glucoses and now she is going to be discharged on Augmentin, insulin glargine, albuterol nebulizers. DISCHARGE VITAL SIGNS: Temperature 98.2 degrees, heart rate 74, respiratory rate 18, blood pressure 166/70, O2 saturation 100% on room air. DISCHARGE LABORATORY DATA: White blood cells 3000, hemoglobin 9, hematocrit 29, platelet count 185,000. Sodium 142, potassium 3.6, BUN 13, creatinine 0.9, glucose 169, calcium 9.1. IMAGING: Chest x-ray, interval improvement. EKG, sinus rhythm, rate 83, QTc was 462. DISCHARGE MEDICATIONS: 1. New medication is Augmentin 1 tablet p.o. every 12 hours. 2. Insulin glargine 15 units subcutaneous daily. 3. Albuterol 2 puffs inhaled as needed. 4. Trazodone 100 mg p.o. nightly. 5. Mirtazapine 50 mg p.o. nightly. 6. Folic acid 1 tablet p.o. daily. 7. Neurontin 300 mg p.o. daily. 8. Geodon 80 mg p.o. daily. 9. Ibuprofen 800 mg every 8 hours p.r.n. 10. Keppra 1000 mg p.o. twice daily. 11. Lasix 20 mg p.o. daily. 12. Levemir 38 units subcutaneous nightly. 13. Lipitor 40 mg p.o. nightly. 14. Potassium chloride 8 mEq p.o. daily. 15. Senokot 1 tablet p.o. nightly. 16. Seroquel 100 mg p.o. daily and 200 mg p.o. nightly. 17. Synthroid 75 mg p.o. daily. 18. TriCor (fenofibrate) 145 mg 1 tablet p.o. daily. 19. Zoloft 100 mg p.o. daily. DISCHARGE DIET: Diabetic. DISCHARGE ACTIVITY: As tolerated. DISCHARGE PHYSICIAN: Follow up with the primary care provider. DISCHARGE INSTRUCTIONS: If your condition changes, contact physician and/or return to the emergency department. Changes may include, but are not limited to, shortness of breath, increased fatigue, excessive bleeding, unexplained weight loss or gain, unmanageable pain, signs or symptoms of infection. DISCHARGE DISPOSITION: Home. Dictated by BEAN Carrillo for Jacques Muhammad MD Addendum: patient seen and examined by myself. Agree with BEAN note. It reflects my assessment and plan. Patient is being discharged in stable condition. Will be seen by PCP in a week. cc: BEAN Carrillo MD [facility]
== END 2019-03-14 12:55 | disposition home or self-care (01) | DRG 191 ==
LOC: P.ED 13:35 → P.MEDSURG 17:01
PROVIDERS: ATTEND Internal Medicine